=== PATIENT | male | born 1980 | race Two or more races ===

== ENCOUNTER 2017-12-06 21:00 | Emergency (ER) | payer OTHER ==
[2017-12-06 21:09] VITALS: BP 156/80; PULSE 97; TEMP 98.8; BMI 46.5
--- NOTE | 2017-12-06 21:32 | PDOC ---
History of Present Illness - General History Source: Patient Exam Limitations: No Limitations - History of Present Illness Initial Comments: The patient is a 36 year old male who presents to the emergency department s/p fall complaining of right toe pain beginning an hour ago. The patient reports slipping and falling on to his right toe. The patient reports the pain is moderate and localized in nature. The patient denies loss of consciousness. The patient denies any other kinds of injuries. The patient denies chest pain, shortness of breath, headache, and dizziness. Denies fevers, chills, nausea, vomiting, diarrhea, and constipation. Denies dysuria, frequency, urgency, and hematuria. PAST MEDICAL HISTORY: no significant history. PAST SURGICAL HISTORY: Left ankle surgery. FAMILY HISTORY: no pertinent history SOCIAL HISTORY: Pt lives with family and is employed. Social alcohol consumption. MEDICATIONS: reviewed ALLERGIES: As per nursing notes ROS: General: No fevers or chills, no weakness, no weight loss HEENT: No change in vision. No sore throat,. No ear pain CardioVascular: No chest pain or shortness of breath Respiratory:No cough, or wheezing. Gastrointestinal: no nausea, vomiting, diarrhea or constipation, No rectal bleeding Genitourinary: No dysuria, hematuria, or frequency Musculoskeletal: (+)Right toe pain. Neurologic: No headache, vertigo, dizziness or loss of consciousness Psychiatric: nor depression Skin: No rashes or easy bruising Endocrine: no increased thirst or abnormal weight change Allergic: no skin or latex allergy All other systems reviewed and normal PE: GENERAL: The patient is awake, alert, and fully oriented, in no acute distress. HEAD: Normal with no signs of trauma. EYES: Pupils equal, round and reactive to light, extraocular movements intact, sclera anicteric, conjunctiva clear. EXTREMITIES: (+)Mild swelling of distal phalanx of right toe. (+)Subungual hematoma less than 10% of toenail. (+)Tenderness to palpation of distal phalanx of right foot. NEUROLOGICAL: Normal speech, normal gait. PSYCH: Normal mood, normal affect. SKIN: Warm, Dry, normal turgor, no rashes or lesions noted. <Fiona Mathew - Last Filed: 12/06/17 21:43> - General History Source: Patient Exam Limitations: No Limitations - History of Present Illness Initial Comments: 12/06/17 21:51 A portion of this note was documented by scribe services under my direction. I have reviewed the details of the note, within reason, and agree with the documentation. The case summary and management plan written by me. X-ray right great toe fracture distal phalanx Assessment and plan: This is a 36-year-old male who comes in post injuring his toe. X-ray shows a fracture of the distal phalanx. Patient's toe was shaq taped he was given ibuprofen and told to follow-up with his doctor as needed <Zaira Weldon I - Last Filed: 12/06/17 21:53> - General Chief Complaint: Injury Stated Complaint: RT BIG TOE INJURY Time Seen by Provider: 12/06/17 21:30 Past History <Fiona Mathew - Last Filed: 12/06/17 21:43> - Past Medical History COPD: No Kidney Stones: Yes - Suicide/Smoking/Psychosocial Hx Smoking History: Never smoked Have you smoked in the past 12 months: No Information on smoking cessation initiated: No Hx Alcohol Use: (social) Drug/Substance Use Hx: No Substance Use Type: None <Zaira Weldon I - Last Filed: 12/06/17 21:53> - Past Medical History Allergies/Adverse Reactions: Allergies Allergy/AdvReac Type Severity Reaction Status Date / Time No Known Allergies Allergy Verified 12/06/17 21:04 Home Medications: Ambulatory Orders NK [No Known Home Medication] 12/06/17 *Physical Exam - Vital Signs Last Vital Signs Temp Pulse Resp BP Pulse Ox 98.8 F 97 H 18 156/80 98 12/06/17 21:00 12/06/17 21:00 12/06/17 21:00 12/06/17 21:00 12/06/17 21:00 <Fiona Mathew - Last Filed: 12/06/17 21:43> - Vital Signs Last Vital Signs Temp Pulse Resp BP Pulse Ox 98.8 F 97 H 18 156/80 98 12/06/17 21:00 12/06/17 21:00 12/06/17 21:00 12/06/17 21:00 12/06/17 21:00 <Zaira Weldon I - Last Filed: 12/06/17 21:53> *DC/Admit/Observation/Transfer - Attestations Scribe Attestion: Documentation prepared by Fiona Mathew, acting as medical device for Zaira Weldon MD. <Fiona Mathew - Last Filed: 12/06/17 21:43> - Discharge Dispostion Admit: No <Zaira Weldon I - Last Filed: 12/06/17 21:53> Diagnosis at time of Disposition: Fracture of right great toe Qualifiers: Encounter type: initial encounter Fracture type: closed Phalanx: distal Fracture alignment: nondisplaced Qualified Code(s): S92.424A - Nondisplaced fracture of distal phalanx of right great toe, initial encounter for closed fracture - Discharge Dispostion Disposition: HOME Condition at time of disposition: Stable - Patient Instructions Additional Instructions: You have a fracture of the end of your toe. Shaq tape it to the toe next to it for additional support, Wear an open type shoe or sandal. Tylenol or Motrin as needed for pain. Return to the emergency department immediately with ANY new, persistent or worsening symptoms. Continue any medications as previously prescribed by your physician. You should follow up with your primary doctor as soon as possible regarding today's emergency department visit. . Please make sure your doctor reviews the results of your emergency evaluation. Thank you for coming to the Emergency Department today for your care. It was a pleasure to see you today. Please note that your evaluation is INCOMPLETE until you follow-up with your doctor.
[2017-12-06] MEDS ORDERED: IBUPROFEN 400 MG TABLET (FP) PO ONE ×2 (21:34→22:02)
== END 2017-12-06 22:06 | disposition home or self-care (01) ==
LOC: FER 21:00
PROC: 2W3UXYZ Immobilization of Right Toe using Other Device (ICD-10-PCS; principal; 2017-12-06)
DX: S92.424A Nondisplaced fracture of distal phalanx of right great toe, initial encounter for closed fracture (principal); X58.XXXA Exposure to other specified factors, initial encounter; Y93.89 Activity, other specified; Y92.9 Unspecified place or not applicable
CPT/HCPCS: 73660-TC-FY; 99282-25

== ENCOUNTER 2018-12-17 08:29 | Emergency (ER) | payer OTHER ==
--- NOTE | 2018-12-17 08:39 | PDOC ---
History of Present Illness - General Chief Complaint: Urinary Problem Stated Complaint: BLOOD IN URINE Time Seen by Provider: 12/17/18 08:33 History Source: Patient Exam Limitations: No Limitations - History of Present Illness Initial Comments: 12/17/18 08:35 Mr. De La Garza is a 38 yo M who presents to the ER with a complaint of hematuria which began 1 hour ago. Patient's first urine this morning was normal. After that he noted cranberry colored urine No associated dysuria, frequency, urgency Pt reported lower back pain yesterday, on right side, 7/10, sharp, constant, resolved by the time he went to sleep last night No traumatic injury No recent recent hard/excessive workouts No new medication No fevers or chills PMH: HTN, GERD, Fatty liver, Kidney stone PSH: right ankle surgery Meds: Amlodipine, Metoprolol ALL: NKDA Social: denies smoking, drugs, alcohol on weekends Works for [employer] (does heavy lifting) ROS: GENERAL/CONSTITUTIONAL: No: fever, chills, weakness, loss of appetite. HEAD, EYES, EARS, NOSE AND THROAT: No: change in vision, ear pain, discharge, sore throat, throat swelling. CARDIOVASCULAR: No: chest pain, lightheadedness, palpitations, syncope RESPIRATORY: No: cough, shortness of breath, wheezing, hemoptysis, stridor. GASTROINTESTINAL: No: nausea, vomiting, diarrhea, abdominal cramping, rectal bleeding, constipation. GENITOURINARY: Yes: hematuria No: dysuria, frequency, urgency, flank pain. MUSCULOSKELETAL: No: back pain, neck pain, joint pain, muscle swelling or pain SKIN: No: lesions, pallor, rash or easy bruising. NEUROLOGIC: No: headache, vertigo, paresthesias, weakness PE: GENERAL: The patient is in no acute distress. HEAD: Normal with no signs of trauma. EYES: PERRLA, EOMI, sclera anicteric, conjunctiva clear. ENT: Ears normal, nares patent, oropharynx clear without exudates. Moist mucous membranes. NECK: Normal range of motion, supple LUNGS: Breath sounds equal, clear to auscultation bilaterally. No wheezes, and no crackles. HEART:Regular rate and rhythm, normal S1 and S2 without murmur, rub or gallop. ABDOMEN: Soft, nontender, normoactive bowel sounds. No guarding, no rebound. EXTREMITIES: Normal range of motion, no edema. NEUROLOGICAL: Cranial nerves II through XII grossly intact. Normal speech. No focal neurological deficits. MUSCULOSKELETAL: No CVA tenderness SKIN: Warm, Dry, normal turgor, no rashes or lesions noted. 12/17/18 08:44 12/17/18 09:09 12/17/18 09:18 Past History - Past Medical History Allergies/Adverse Reactions: Allergies Allergy/AdvReac Type Severity Reaction Status Date / Time No Known Allergies Allergy Verified 12/17/18 08:35 Home Medications: Ambulatory Orders Amlodipine Besylate [Norvasc -] 10 mg PO DAILY 12/17/18 Ciprofloxacin [Cipro -] 500 mg PO Q12H #10 tablet 12/17/18 Metoprolol Succinate 25 mg PO DAILY 12/17/18 Naproxen Sodium 220 mg PO BID PRN #30 tablet 12/17/18 Oxycodone HCl/Acetaminophen [Percocet 5-325 mg Tablet -] 1 tab PO Q8H PRN #12 tablet MDD 3 12/17/18 Tamsulosin HCl [Flomax] 0.4 mg PO HS #10 capsule 12/17/18 COPD: No Kidney Stones: Yes - Suicide/Smoking/Psychosocial Hx Smoking History: Never smoked Have you smoked in the past 12 months: No Hx Alcohol Use: (social) Drug/Substance Use Hx: No Substance Use Type: None ED Treatment Course - LABORATORY CBC & Chemistry Diagram: 12/17/18 08:54 12/17/18 08:54 Medical Decision Making - Medical Decision Making 12/17/18 09:09 Laboratory Tests 12/17/18 08:54 WBC 7.9 Hgb 15.3 Hct 46.1 Plt Count 221 No anemia 12/17/18 09:20 Laboratory Tests 12/17/18 08:39 Urine Color Red Urine Appearance Cloudy Urine Blood 3+ H Urine Nitrite Negative Ur Leukocyte Esterase Negative 12/17/18 09:46 CT demonstrates partially obstructing right proximal ureteral stone, mild hydro Case reviewed with Dr Krishna Loyola He would like to discharge this patient on pain meds, abx, flomax Will see him in the office on Thursday Pt to return to the ER immediately for PAIN that is not controlled with pain meds, FEVERS, WEAKNESS, Any other concerns or complaints *DC/Admit/Observation/Transfer Diagnosis at time of Disposition: Kidney stone on right side - Discharge Dispostion Disposition: HOME Condition at time of disposition: Stable Decision to Admit order: No - Referrals Referrals: Almas Rubio MD [Staff Physician] - Paulette Anderson MD [Staff Physician] - - Patient Instructions Printed Discharge Instructions: DI for Kidney Stones, Extracorporeal Shock Wave Lithotripsy, Kidney Stones (Alternative Therapy) Additional Instructions: Mr De La Garza Thank you for coming in to the ER today You have a very large kidney stone on the right side You may pass it but you may not you will need to follow up with the Urologist for further management I have prescribed pain medication (naproxen should be taken with food or milk, it could irritate your stomach/gastritis), Percocet is for severe break through pain ONLY as prescribed, do not take it if you do not need it as this medications is addicting You should also take antibiotics If you notice fevers, chills, weakness, severe pain not relieved with pain medications, or any other concern please feel free to return to the ER for repeat assessment Please call the Urologist (Dr. Rubio) today for an appointment on Thursday (he would like to see you then) I have also included Dr Anderson's information in case you can't see Dr Rubio - Post Discharge Activity Forms/Work/School Notes: Back to Work
[2018-12-17 08:43] VITALS: BP 156/98; PULSE 78; TEMP 98.8; BMI 43.2
[2018-12-17 09:01] LABS: BASO % 1.1 % (0-2.0); EOS % 5.7 % (0-4.5); HEMATOCRIT 46.1 % (35.4-49); HEMOGLOBIN 15.3 GM/dl (11.7-16.9); MCH 29.2 pg (25.7-33.7); MCHC 33.2 g/dl (32.0-35.9); MEAN CELL VOLUME 87.8 fl (80-96); MEAN PLT VOLUME 9.2 fl (7.5-11.1); MONO % 5.9 % (3.8-10.2); NEUT % 55.3 % (42.8-82.8); PLATELET COUNT 221 K/MM3 (134-434); RBC 5.25 M/mm3 (4.00-5.60); RDW 13.4 % (11.9-15.9); WHITE BLOOD COUNT 7.9 K/mm3 (4.0-10.8)
[2018-12-17 09:10] LABS: ALBUMIN 4.5 g/dl (3.4-5.0); ALK PHOS 73 U/L (45-117); AMYLASE 51 U/L (25-115); ANION GAP 9 MMOL/L (8-16); BILIRUBIN,TOTAL 0.9 mg/dl (0.2-1); BLOOD UREA NITROGEN 22 mg/dl (7-18); CALCIUM 9.5 mg/dl (8.5-10); CHLORIDE 104 mmol/L (98-107); CO2 24 mmol/L (21-32); CREATININE 0.8 mg/dl (0.55-1.3); GLUCOSE,RANDOM 129 mg/dl (74-106); POTASSIUM 3.8 mmol/L (3.5-5.1); SGOT/AST 51 U/L (15-37); SGPT/ALT 91 U/L (13-61); SODIUM 137 mmol/L (136-145); TOT PROT 7.6 g/dl (6.4-8.2)
[2018-12-17 10:36] LABS: LIPASE 129 U/L (73-393)
== END 2018-12-17 10:04 | disposition home or self-care (01) ==
LOC: FER 08:29
DX: N23 Unspecified renal colic (principal)
CPT/HCPCS: 36415; 74176-TC; 80053; 81003; 81015; 82150; 83690; 85025; 87086; 99282-25

== ENCOUNTER 2018-12-27 08:24 | Day surgery (SDC) | payer OTHER ==
[2018-12-24 14:13] VITALS: BMI 41.5
[2018-12-27] MEDS ORDERED: PROPOFOL 20 ML ONE ×2 (11:43)
[2018-12-27] MEDS ORDERED: LIDOCAINE HCL/PF 2% SDV 5ML VIAL ONE (11:49)
[2018-12-27] MEDS ORDERED: GLYCOPYRROLATE 0.2 MG/1 ML VIAL ONE (12:01)
[2018-12-27] MEDS ORDERED: DEXAMETHASONE SOD PHOSPHATE 4 MG/1 ML VIAL ONE (12:01)
[2018-12-27] MEDS ORDERED: oxyCODONE HCL 5 MG TABLET PO PRN (12:25)
[2018-12-27] MEDS ORDERED: IBUPROFEN 800 MG/8 ML IJ IVPB PRN (12:25)
[2018-12-27] MEDS ORDERED: ONDANSETRON 4 MG/2 ML VIAL IVPUSH PRN (12:25)
[2018-12-27] MEDS ORDERED: LACTATED RINGERS SOLUTION 1,000 ML IV SCH (12:30)
--- NOTE | 2018-12-27 13:25 | OP ---
Operative Note - Note: Operative Date: 12/27/18 Pre-Operative Diagnosis: right ureteral stone Operation: cystoscopy/right retrograde pyelogram/right ureteroscopic laser lithotripsy/attempted right ureteral stone basketing/right ureteral stent placement Findings: 10 mm proximal partially obstructing ureteral stone Post-Operative Diagnosis: Same as Pre-op Surgeon: Almas Rubio Anesthesia: General Drains & Tubes with Location: 02/14 right ureteral stent
[2018-12-27 13:40] VITALS: TEMP 98.1
[2018-12-27] MEDS ORDERED: ONDANSETRON 4 MG/2 ML VIAL ONE (13:42)
[2018-12-27] MEDS ORDERED: ACETAMINOPHEN 325 MG TABLET (FP) ONE (14:29)
[2018-12-27] MEDS ORDERED: ACETAMINOPHEN 325 MG TABLET (FP) PO ONE (14:31)
[2018-12-27 16:26] VITALS: BP 127/77; PULSE 61
--- NOTE | 2018-12-28 10:14 | OP ---
DATE OF OPERATION: 12/27/2018 PREOPERATIVE DIAGNOSIS: Right ureteral stone. POSTOPERATIVE DIAGNOSIS: Right ureteral stone. PROCEDURE: Cystoscopy, right retrograde pyelogram, right ureteroscopic laser lithotripsy, attempted right ureteral stone basketing, and right ureteral stent placement. ATTENDING: Nadine Cade MD ANESTHESIA: General. OPERATION WENT FOLLOWS: The patient was brought in the operating room, placed in supine position on the operating room table. General anesthesia and preoperative antibiotics were administered. At this point, the patient was placed in the dorsal lithotomy position and prepped and draped in the usual sterile manner. Cystoscopy was performed. No evidence of stones or neoplasm was noted within the bladder. A retrograde pyelogram was performed which showed a filling defect consistent with a 1-cm ureteral stone was found. The stone was partially obstructing and located in the upper third of the ureter. A wire was passed proximally. At this point, ureteroscopy was performed. The stone was seen. Under direct visualization, laser lithotripsy was performed. The stone migrated more proximally at this point. Attempts at basketing stone were unsuccessful as the particles migrated proximally into the kidney. It was decided to leave the patient with a stent and to evaluate the patient at a later date for extracorporeal shock wave lithotripsy for the residual stone. A 6-Cypriot 24-cm right ureteral stent was then placed over the wire utilizing the Seldinger technique. No complications were noted. The disposition of the patient was to the recovery room. NADINE CADE M.D. [id number]
== END 2018-12-27 16:45 | disposition home or self-care (01) ==
LOC: JASU-SURG 08:24
PROVIDERS: ATTEND Urology
PROC: 0TF68ZZ Fragmentation in Right Ureter, Via Natural or Artificial Opening Endoscopic (ICD-10-PCS; principal; 2018-12-27 10:00)
PROC: 0T768DZ Dilation of Right Ureter with Intraluminal Device, Via Natural or Artificial Opening Endoscopic (ICD-10-PCS; 2018-12-27 10:00)
DX: N20.1 Calculus of ureter (principal)
CPT/HCPCS: 76000-TC-FY; 94760

== ENCOUNTER 2019-01-03 15:55 | Emergency (ER) | payer OTHER ==
[2019-01-03 16:07] VITALS: BP 143/93; PULSE 73; TEMP 98.4; BMI 40.3
[2019-01-03] MEDS ORDERED: KETOROLAC TROMETHAMINE 30 MG/1 ML VIAL IVPUSH ONE (16:56)
[2019-01-03] MEDS ORDERED: FAMOTIDINE 20 MG/50 ML IVPB 20 MG/50 ML MG IVPB ONE ×2 (16:56→17:37)
[2019-01-03] MEDS ORDERED: MAG HYDROX/AL HYDROX/SIMETH 30 ML UNIT-DOSE CUP PO ONE (16:57)
--- NOTE | 2019-01-03 16:59 | PDOC ---
Documentation entered by Alex Marrero SCRIBE, acting as scribe for Leyla Altamirano MD. Leyla Altamirano MD: This documentation has been prepared by the Janes colbert Daniel, SCRIBE, under my direction and personally reviewed by me in its entirety. I confirm that the documentation accurately reflects all work, treatment, procedures, and medical decision making performed by me. History of Present Illness - General Chief Complaint: Constipation Stated Complaint: constipation History Source: Patient Exam Limitations: No Limitations - History of Present Illness Initial Comments: 01/03/19 16:50 The patient is a 38 year old male with a past medical history of kidney stones and HTN here today for evaluation of constipation and abdominal pain. The patient reports that his constipation began after he had ureteral stents put in on 12/27/18 (Surgery performed by Dr. Rubio). He reports taking flomax for 2 days. he had procedure done under general anesthesia as well as short course of oxycodone post operatively which he took 1.5 tab of for some pain. Patient reports that he has been having bowel movements but they have been less than usual. He tried prune juice with no relief and notes mild nausea. He also reports right lower back pain near the incision site and mild blood with urination. Patient also notes 1 week of mild abdominal pain. he has upcoming lithotripsy coming up with Dr Harry for his ureteral stone. making small brown stool, nonbloody, no rectal pain or bleeding. +flatus. last BM today. Patient denies headache, lightheadedness. Denies fever, chills. Denies chest pain, shortness of breath. Denies nausea, vomiting, diarrhea. Allergies: NKA Social history: Denies illicit drug and tobacco use. Confirms social drinking. 01/03/19 18:45 Past History - Past Medical History Allergies/Adverse Reactions: Allergies Allergy/AdvReac Type Severity Reaction Status Date / Time No Known Allergies Allergy Verified 01/03/19 15:56 Home Medications: Ambulatory Orders Amlodipine Besylate [Norvasc -] 10 mg PO DAILY 12/17/18 Metoprolol Succinate 25 mg PO DAILY 12/17/18 Tamsulosin HCl [Flomax] 0.4 mg PO HS #10 capsule 12/17/18 Docusate Sodium [Colace -] 100 mg PO BID #14 capsule 01/03/19 Sennosides [Senna -] 1 tab PO BID #20 tablet 01/03/19 COPD: No HTN: Yes Kidney Stones: Yes - Surgical History Orthopedic Surgery: Yes (ANKLE SX) - Suicide/Smoking/Psychosocial Hx Smoking History: Former smoker Have you smoked in the past 12 months: No If you are a former smoker, when did you quit?: 10-15 YEARS AGO Hx Alcohol Use: Yes (social) Drug/Substance Use Hx: No Substance Use Type: None Review of Systems - Review of Systems Able to Perform ROS?: Yes Comments:: 01/03/19 16:50 GENERAL/CONSTITUTIONAL: No fever or chills. No weakness. no sweats. HEAD, EYES, EARS, NOSE AND THROAT: No change in vision or hearing. No ear pain or discharge. No sore throat or mouth pain. No difficulty swallowing. No congestion. CARDIOVASCULAR: No chest pain or palpitations, syncope or edema. RESPIRATORY: No SOB, cough, wheezing, or hemoptysis. GASTROINTESTINAL +nausea. +constipation. +abdominal pain. No vomiting. No diarrhea. No bloody stools. GENITOURINARY: No hematuria, dysuria, frequency, urgency or other changes. MUSCULOSKELETAL: +right lower back pain. No joint or muscle swelling or pain. No decreased range of motion. No neck pain. SKIN: No rash or changes in skin color or lesions. No wounds. NEUROLOGIC: alert and oriented appropriately No headache, dizziness, loss of consciousness, or change in strength/sensation. No gait instability. HEMATOLOGIC/LYMPHATIC: No anemia, easy bruising/bleeding, or history of blood clots. No swollen lymph nodes ALLERGIC/IMMUNOLOGIC: No allergies PSYCH: no anxiety/depression All other systems reviewed and negative, or as documented in HPI. *Physical Exam - Vital Signs Last Vital Signs Temp Pulse Resp BP Pulse Ox 98.4 F 73 20 143/93 98 01/03/19 15:55 01/03/19 15:55 01/03/19 15:55 01/03/19 15:55 01/03/19 15:55 - Physical Exam Comments: 01/03/19 17:01 General: Well appearing, awake and alert, NAD. HEENT: NCAT, PERRL, EOMI, clear conjunctiva, anicteric, moist mucus membranes, clear oropharynx, no oral lesions.. Neck: neck supple, FROM Resp: CTAB, normal and even respirations, no respiratory distress CVS: RRR, no murmurs, 2+ peripheral pulses throughout, no peripheral edema Abdomen: +mild epigastric tenderness. soft, ND, no rebound or guarding. No CVAT. Back: nontender, normal inspection and ROM MSK: no edema, GUTIERREZ x4, ROM intact. No clubbing or cyanosis. normal bulk and tone. Extremities: no calf tenderness Rectal exam: no stool in vault. Good muscle tone. No hemorrhoids or bleeding. Neuro: alert, oriented appropriately; no focal neurologic deficits Skin: warm and well perfused, cap refill <2 sec, normal color ED Treatment Course - LABORATORY CBC & Chemistry Diagram: 01/03/19 17:33 01/03/19 17:33 - RADIOLOGY Radiology Studies Ordered: Category Date Time Status ABDOMEN-KUB FLAT PLATE [RAD] Stat Radiology 01/03/19 16:58 Ordered Medical Decision Making - Medical Decision Making 01/03/19 16:58 hpi as documented VS reviewed, wnl DDx abdominal pain: Renal colic, biliary colic, metabolic/electrolyte derangements. GERD, PUD, esophageal spasm, pancreatitis, hepatitis, constipation , colitis, gastroenteritis, cholecystitis, UTI, pyelonephritis, ileus, SBO, medication side effect, hernia, appendicitis, diverticulitis, mesenteric ischemia. msk strain ED course: - abdomen exam with mild epigastric TTP, no peritoneal sx. rectal exam unremarkable, no hemorrhoid or fecal impaction. - labs and lytes, lipase normal. UA unremarkable, no blood or signs of infection - GI cocktail, reassess - feels better - Axr with right ureteral stent in place, nonobstructive bowel gas pattern, no perf, scant stool in colon. - min abdominal sx, well appearing, nonperitoneal. low suspicion for abdominal pathology or infection, no imaging indicated at this time. - constipation likely from prior anesthesia and small opioid use (oxycodone, only took 1 day - opioid naive) constipation care instructions. stool softener, high fiber diet and laxative/ miralax as needed for clean out. he is also likely passing his stone with ureteral stent in place, voiding urine. has upcoming uro appt for lithotripsy 01/03/19 18:34 01/03/19 18:36 01/03/19 18:47 *DC/Admit/Observation/Transfer Diagnosis at time of Disposition: Abdominal pain - Discharge Dispostion Disposition: HOME Condition at time of disposition: Good Decision to Admit order: No - Prescriptions Prescriptions: Docusate Sodium [Colace -] 100 mg PO BID #14 capsule Sennosides [Senna -] 1 tab PO BID #20 tablet - Referrals Referrals: Almas Rubio MD [Staff Physician] - [facility] [Provider Group] [facility] [Provider Group] - Patient Instructions Printed Discharge Instructions: DI for Abdominal Pain-Adult, DI for Constipation Additional Instructions: - You were seen in the emergency department for constipation. Return if worsening symptoms. - You have been prescribed docusate (colace) and senna. These should be taken every day. If you do not have regular bowel movements after 2-3 days, you may add Miralax or Metamucil daily. These can be bought at any pharmacy and are available over the counter. - High fiber diet encouraged: beans, fruits, vegetables, whole grains. - Make sure you are drinking plenty of water, at least 6-8 cups per day ideally. - You should follow up with your primary doctor within the next 2-3 days for evaluation and to help you adjust medications for your constipation. - your blood work was normal, X ray did not show blockage or obstruction. ureteral stent on left in place. you have blood in urine consistent with passing kidney stone that will be managed by Dr Harry Discharge: Take Colace 100-200 mg up to three times per day. You may take along with Senokot 1-2 tabs, ingest with full glass of water. Maintain fluid intake 6- 8 glasses per day. Please increase fibers in your diet. You may also take Milk of Magnesia 30 mL as needed for constipation, you may repeat in 2 hours again if no bowel movement. - Post Discharge Activity
[2019-01-03] MEDS ORDERED: MAG HYDROX/AL HYDROX/SIMETH 30 ML UNIT-DOSE CUP ONE (17:38)
[2019-01-03] MEDS ORDERED: KETOROLAC TROMETHAMINE 15 MG/ML VIAL ONE (17:38)
[2019-01-03 17:50] LABS: BASO % 1.1 % (0-2.0); EOS % 3.8 % (0-4.5); HEMOGLOBIN 15.2 GM/dl (11.7-16.9); LYMPH % 28.2 % (8-40); MCH 28.8 pg (25.7-33.7); MCHC 33.1 g/dl (32.0-35.9); MEAN CELL VOLUME 87.2 fl (80-96); MEAN PLT VOLUME 8.4 fl (7.5-11.1); MONO % 6.8 % (3.8-10.2); NEUT % 60.1 % (42.8-82.8); PLATELET COUNT 273 K/MM3 (134-434); RBC 5.28 M/mm3 (4.00-5.60); RDW 12.8 % (11.9-15.9)
[2019-01-03 17:54] LABS: ALBUMIN 4.6 g/dl (3.4-5.0); BILIRUBIN,TOTAL 0.7 mg/dl (0.2-1); TOT PROT 7.7 g/dl (6.4-8.2)
[2019-01-03 18:13] LABS: CALCIUM 9.6 mg/dl (8.5-10)
== END 2019-01-03 19:23 | disposition home or self-care (01) ==
LOC: FER 15:55
PROC: 3E033GC Introduction of Other Therapeutic Substance into Peripheral Vein, Percutaneous Approach (ICD-10-PCS; principal; 2019-01-03)
PROC: 3E0333Z Introduction of Anti-inflammatory into Peripheral Vein, Percutaneous Approach (ICD-10-PCS; 2019-01-03)
DX: R10.9 Unspecified abdominal pain (principal); Z87.891 Personal history of nicotine dependence; I10 Essential (primary) hypertension; Z87.442 Personal history of urinary calculi
CPT/HCPCS: 36415; 74018-TC-FY; 80053; 81003; 81015; 83690; 85025; 87086; 99282-25

== ENCOUNTER 2019-01-10 12:08 | Day surgery (SDC) | payer OTHER ==
[2019-01-07 14:21] VITALS: BMI 40.3
[2019-01-10] MEDS ORDERED: MIDAZOLAM HCL 2 MG/2 ML SINGLE DOSE VIAL ONE ×2 (13:36)
--- NOTE | 2019-01-10 14:09 | OP ---
Operative Note - Note: Operative Date: 01/10/19 Pre-Operative Diagnosis: Right renal stone Operation: Right ESWL Findings: 7 mm lower lobe Right renal stone Surgeon: Almas Rubio Anesthesia: Fractional Estimated Blood Loss (mls): 0 Operative Report Dictated: Yes
[2019-01-10] MEDS ORDERED: KETOROLAC TROMETHAMINE 30 MG/1 ML VIAL ONE (14:11)
[2019-01-10 15:47] VITALS: BP 118/76; PULSE 56; TEMP 98
--- NOTE | 2019-01-11 15:11 | OP ---
DATE OF OPERATION: 01/10/2019 PREOPERATIVE DIAGNOSIS: Right renal stone. POSTOPERATIVE DIAGNOSIS: Right renal stone. PROCEDURE: Right extracorporeal shock-wave lithotripsy. ATTENDING: Nadine Cade MD ANESTHESIA: Fractional OPERATION: The patient was brought in the operating room, placed in supine position on the operating room table. Ultrasonography and fluoroscopy were performed. A 7-mm right lower pole stone was identified. Anesthesia and preoperative antibiotics were then administered. Shock-wave lithotripsy was then started, 2500 impulses at 18 joules of power were administered to the stone. Fragmentation of the stone was noted under realtime ultrasonography and fluoroscopy. No complications were noted. Disposition of the patient was to recovery room. NADINE CADE M.D. [id number]
== END 2019-01-10 16:09 | disposition home or self-care (01) ==
LOC: JASU-SURG 12:08
PROVIDERS: ATTEND Urology
PROC: 0TF3XZZ Fragmentation in Right Kidney Pelvis, External Approach (ICD-10-PCS; principal; 2019-01-10 13:15)
DX: N20.0 Calculus of kidney (principal)

== ENCOUNTER 2019-05-05 16:13 | Emergency (ER) | payer OTHER ==
[2019-05-05 16:43] VITALS: BP 143/71; PULSE 88; TEMP 98.5; BMI 41.9
--- NOTE | 2019-05-05 16:48 | PDOC ---
Documentation entered by Danielle Morrell SCRIBE, acting as scribe for Parvin Dean MD. Parvin Dean MD: This documentation has been prepared by the Petros colbert Brenda, SCRIBE, under my direction and personally reviewed by me in its entirety. I confirm that the documentation accurately reflects all work, treatment, procedures, and medical decision making performed by me. History of Present Illness - General Chief Complaint: Blood Pressure Problem Stated Complaint: HIGH BLOOD PRESSURE Time Seen by Provider: 05/05/19 16:15 History Source: Patient Exam Limitations: No Limitations - History of Present Illness Initial Comments: 05/05/19 16:37 The patient is a 38 year old male, with a significant PMH of kidney stones and HTN who presents to the emergency department with complaints of high blood pressure at 177/111, while checking it at home. As per patient, he was changed to Lisinopril from Amlodipine and metoprolol on Thursday (05/04/19) by his wellness rn, and has since been advised to check his blood pressure twice a day by his primary care doctor. The patient reported his elevated BP reading to his cousin who told him to go to the ED right away. He denies any headache, dizziness, focal weakness/numbness, CP, SOB, visual sxs. He reports feeling recent cold symptoms, such as sneezing, coughing and a sore throat since Thursday , stating his co-worker likely got him sick. He has been taking coricidine HBP since yesterday for his cold sxs. Denies fever, chills, nausea, vomiting, diarrhea and constipation. Denies any urinary symptoms. Allergies: NKA Past surgical history: lithotripsy, orthopedic ankle surgery Social history: Denies illicit drug use. Confirms social drinking. Former smoker, quit 10-15 years ago. PCP: Dr. Patiño, at [facility] in the [place]. Past History - Past Medical History Allergies/Adverse Reactions: Allergies Allergy/AdvReac Type Severity Reaction Status Date / Time No Known Allergies Allergy Verified 05/05/19 16:16 Home Medications: Ambulatory Orders Metoprolol Succinate 25 mg PO DAILY 12/17/18 Lisinopril/Hydrochlorothiazide [Lisinopril-Hctz 20-12.5 mg Tab] 1 each PO DAILY 05/05/19 COPD: No Disorders: Yes HTN: Yes Kidney Stones: Yes - Surgical History Orthopedic Surgery: Yes (ANKLE SX) - Suicide/Smoking/Psychosocial Hx Smoking History: Former smoker Have you smoked in the past 12 months: No If you are a former smoker, when did you quit?: 10-15 YEARS AGO Hx Alcohol Use: Yes (social) Drug/Substance Use Hx: No Substance Use Type: None Review of Systems - Review of Systems Comments:: 05/05/19 16:43 GENERAL/CONSTITUTIONAL: No fever or chills. No weakness. HEAD, EYES, EARS, NOSE AND THROAT: No change in vision. No ear pain or discharge. +sore throat. GASTROINTESTINAL: No nausea, vomiting, diarrhea or constipation. GENITOURINARY: No dysuria, frequency, or change in urination. CARDIOVASCULAR: No chest pain or shortness of breath. RESPIRATORY: +cough, wheezing, or hemoptysis. MUSCULOSKELETAL: No joint or muscle swelling or pain. No neck or back pain. SKIN: No rash NEUROLOGIC: No headache, vertigo, loss of consciousness, or change in strength/ sensation. ENDOCRINE: No increased thirst. No abnormal weight change. HEMATOLOGIC/LYMPHATIC: No anemia, easy bleeding, or history of blood clots. ALLERGIC/IMMUNOLOGIC: No hives or skin allergy. *Physical Exam - Vital Signs Last Vital Signs Temp Pulse Resp BP Pulse Ox 98.5 F 88 16 143/71 96 05/05/19 16:13 05/05/19 16:13 05/05/19 16:13 05/05/19 16:13 05/05/19 16:13 - Physical Exam Comments: 05/05/19 16:45 GENERAL: Awake, alert, and fully oriented, in no acute distress HEAD: No signs of trauma EYES: PERRLA, EOMI, sclera anicteric, conjunctiva clear ENT: Auricles normal inspection, hearing grossly normal, +clear rhinorrhea, oropharynx clear without exudates. Moist mucosa NECK: Normal ROM, supple, no lymphadenopathy, JVD, or masses LUNGS: Breath sounds equal, clear to auscultation bilaterally. No wheezes, and no crackles HEART: Regular rate and rhythm, normal S1 and S2, no murmurs, rubs or gallops ABDOMEN: Soft, nontender, normoactive bowel sounds. No guarding, no rebound. No masses EXTREMITIES: Normal range of motion, no edema. No clubbing or cyanosis. No cords, erythema, or tenderness NEUROLOGICAL: Normal speech, cranial nerves intact, negative pronator drift, 5/ 5 strength in all 4 extremities, normal sensation to light touch in all 4 extremities, normal cerebellar exam, normal gait, normal tone SKIN: Warm, Dry, normal turgor, no rashes or lesions noted. Medical Decision Making - Medical Decision Making 05/05/19 16:46 38yo M hx HTN, recent BP medication change yesterday presents to the ED with asymptomatic HTN He has URI sxs, but denies any headache, cp, sob, dizziness, focal weakness/ numbness, or visual sxs His exam is wnl In the ED, his BP is 143/71 Likely hypertensive urgency, no symptoms concerning for hypertensive emergency Given minimal risk for hypertensive emergency, will hold off on labs, UA, CTH, or EKG and plan to call his PMD Dr. Patiño in the [place] for close f/u. Anticipate DC. Called Dr. Patiño (PCP) at [phone] at 16:35 (Hold for 20 minutes)- no answer. Called Dr. Patiño (PCP) again at 17:00 (Hold for 30 minutes) - no answer. 05/05/19 17:33 Attempted to speak with PMD about pt's presentation in ED Scribe on hold for very long period of time No urgent need to discuss case At this time, pt remains asymptomatic and agrees to f/u closely He is clinically stable for DC home, will f/u with PMD in 1-2 days I discussed the physical exam findings, ancillary test results and final diagnoses with the patient. I answered all of the patient's questions. The patient was satisfied with the care received and felt comfortable with the discharge plan and treatment plan. The patient will call their primary care physician within 24 hours to arrange follow-up and will return to the Emergency Department with any new, persistent or worsening symptoms. *DC/Admit/Observation/Transfer Diagnosis at time of Disposition: Elevated blood pressure reading, Rhinorrhea, Cough - Discharge Dispostion Disposition: HOME Condition at time of disposition: Improved Decision to Admit order: No - Referrals - Patient Instructions Printed Discharge Instructions: DI for High Blood Pressure Additional Instructions: Follow up with your primary doctor within 1-2 days Continue to take all of your medications as prescribed Return to the emergency department if you have any new, worsening, or concerning symptoms - Post Discharge Activity - Attestations Physician Attestion: 05/05/19 17:37 I, Dr. Parvin Dean MD, attest that this document has been prepared under my direction and personally reviewed by me in its entirety. I further attest, that it accurately reflects all work, treatment, procedures and medical decision -making performed by me.
== END 2019-05-05 17:45 | disposition home or self-care (01) ==
LOC: FER 16:13
DX: I10 Essential (primary) hypertension (principal); R05 Cough; J34.89 Other specified disorders of nose and nasal sinuses; N20.0 Calculus of kidney
CPT/HCPCS: 99282-25

== ENCOUNTER 2020-04-10 21:27 | Emergency (ER) | payer OTHER ==
[2020-04-10 21:32] VITALS: BP 145/90; PULSE 82; TEMP 98.9; BMI 40.7
--- NOTE | 2020-04-10 21:45 | PDOC ---
Documentation entered by Airam Wong SCRIBE, acting as scribe for Zaira Weldon MD. Zaira Weldon MD: This documentation has been prepared by the Judith colbert Xhesika, SCRIBE, under my direction and personally reviewed by me in its entirety. I confirm that the documentation accurately reflects all work, treatment, procedures, and medical decision making performed by me. History of Present Illness - General Chief Complaint: Pain, Acute Stated Complaint: RIGHT ARM INJURY Time Seen by Provider: 04/10/20 21:29 History Source: Patient Exam Limitations: No Limitations - History of Present Illness Initial Comments: 04/10/20 21:34 HPI The patient is a 39 year old male, with no significant PMH of who presents to the emergency department with R forearm swelling and pain. Pt states he was at work, was lifting something and heard a snap. Pt states immediately after he noticed the swelling. Pt states pain is worse with the use of the R forearm muscle. PAST MEDICAL HISTORY: no significant history PAST SURGICAL HISTORY: no significant history FAMILY HISTORY: no pertinent history SOCIAL HISTORY: Pt lives with family and is employed. MEDICATIONS: reviewed ALLERGIES: As per nursing notes Adult ROS General: No fevers or chills, no weakness, no weight loss HEENT: No change in vision. No sore throat,. No ear pain CardioVascular: No chest pain or shortness of breath Respiratory:No cough, or wheezing. Gastrointestinal: no nausea, vomiting, diarrhea or constipation, No rectal bleeding Genitourinary: No dysuria, hematuria, or frequency Musculoskeletal: +R forearm swelling and pain Neurologic: No headache, vertigo, dizziness or loss of consciousness Psychiatric: nor depression Skin: No rashes or easy bruising Endocrine: no increased thirst or abnormal weight change Allergic: no skin or latex allergy All other systems reviewed and normal PE GENERAL: The patient is awake, alert, and fully oriented, in no acute distress. HEAD: Normal with no signs of trauma. EYES: Pupils equal, round and reactive to light, extraocular movements intact, sclera anicteric, conjunctiva clear. EXTREMITIES: + Tenderness and swelling to R brachioradialis muscle. +pain with use of muscle. No obvious deformity. Neurovascular intact. . NEUROLOGICAL: Normal speech, normal gait. PSYCH: Normal mood, normal affect. SKIN: Warm, Dry, normal turgor, no rashes or lesions noted. 04/10/20 21:50 Assessment and plan: This is a 39-year-old male who comes in complaining of right forearm pain in the area of the brachial radialis muscle. There is some bunching of the muscle so most likely tore the tendon associated with it. Patient put in a sling and told to follow-up with an orthopedist. Patient given orthopedic follow-up. Past History - Medical History Allergies/Adverse Reactions: Allergies Allergy/AdvReac Type Severity Reaction Status Date / Time No Known Allergies Allergy Verified 05/05/19 16:16 Home Medications: Ambulatory Orders Metoprolol Succinate 25 mg PO DAILY 12/17/18 Lisinopril/Hydrochlorothiazide [Lisinopril-Hctz 20-12.5 mg Tab] 1 each PO DAILY 05/05/19 COPD: No Disorders: Yes HTN: Yes Kidney Stones: Yes - Surgical History Orthopedic Surgery: Yes (ANKLE SX) - Psycho-Social/Smoking History Smoking History: Never smoked Have you smoked in the past 12 months: No If you are a former smoker, when did you quit?: 10-15 YEARS AGO Information on smoking cessation initiated: No - Substance Abuse Hx (Audit-C & DAST Scrn) How often the patient has a drink containing alcohol: Never Score: In Men: 4 or > Positive; In Women: 3 or > Positive: 0 Screen Result (Pos requires Nsg. Audit-10AR): Negative In the last yr the pt used illegal drug/Rx for NonMed reason: No Score: Yes response is considered Positive: 0 Screen Result (Positive result requires Nsg. DAST-10): Negative *Physical Exam - Vital Signs Last Vital Signs Temp Pulse Resp BP Pulse Ox 98.9 F 82 20 145/90 98 04/10/20 21:29 04/10/20 21:29 04/10/20 21:29 04/10/20 21:29 04/10/20 21:29 Discharge - Discharge Information Problems reviewed: Yes Clinical Impression/Diagnosis: Right forearm injury Qualifiers: Encounter type: initial encounter Qualified Code(s): S59.911A - Unspecified injury of right forearm, initial encounter Condition: Stable Disposition: HOME - Admission No - Follow up/Referral Referrals: Elvis Dolan DO [Staff Physician] - - Patient Discharge Instructions Patient Printed Discharge Instructions: How to Use a Sling Additional Instructions: Wear the sling while awake you do not need to wear the sling in bed. Tylenol or Motrin for pain. No lifting with your right arm until you are seen by the orthopedist. Return to the emergency department immediately with ANY new, persistent or worsening symptoms. Continue any medications as previously prescribed by your physician. You should follow up with your primary doctor as soon as possible regarding today's emergency department visit. . Please make sure your doctor reviews the results of your emergency evaluation. Thank you for coming to the Emergency Department today for your care. It was a pleasure to see you today. Please note that your evaluation is INCOMPLETE until you follow-up with your doctor. - Post Discharge Activity
== END 2020-04-10 21:54 | disposition home or self-care (01) ==
LOC: FER 21:27
DX: S59.911A Unspecified injury of right forearm, initial encounter (principal)
CPT/HCPCS: 99283-25

== ENCOUNTER 2020-10-30 07:53 | Emergency (ER) | payer OTHER ==
[2020-10-30 09:03] VITALS: BP 176/100; PULSE 95; TEMP 98.9; BMI 43.2
== END 2020-10-30 09:11 | disposition home or self-care (01) ==
LOC: FER 07:53
DX: F41.0 Panic disorder [episodic paroxysmal anxiety] (principal); R06.02 Shortness of breath
CPT/HCPCS: 71046-TC-FY; 93005; 99285-25; C9803; U0003

== ENCOUNTER 2022-03-03 19:15 | Emergency (ER) | payer OTHER ==
[2022-03-03 20:10] VITALS: BP 128/76; PULSE 94; TEMP 99.2; BMI 44.1
[2022-03-03 21:15] LABS: ALBUMIN 4.4 g/dl (3.4-5.0); BILIRUBIN,TOTAL 1.1 mg/dl (0.2-1); CREATININE 1.3 mg/dl (0.55-1.3); TOT PROT 7.7 g/dl (6.4-8.2)
[2022-03-03 21:17] LABS: HEMATOCRIT 45.8 % (35.4-49); MCH 30.4 pg (25.7-33.7); MCHC 34.9 g/dl (32.0-35.9); MEAN CELL VOLUME 87.1 fl (80-96); MEAN PLT VOLUME 9.6 fl (7.5-11.1); PLATELET COUNT 200.8 10^3/uL (134-434); RBC 5.26 10^6/uL (4.00-5.60); RDW 14.4 % (11.9-15.9); WHITE BLOOD COUNT 8.2 10^3/uL (4.0-10.8)
[2022-03-03] MEDS ORDERED: SODIUM CHLORIDE 1,000 ML IV ONE (21:47)
== END 2022-03-03 23:36 | disposition home or self-care (01) ==
LOC: FER 19:15
DX: R42 Dizziness and giddiness (principal); F41.9 Anxiety disorder, unspecified
CPT/HCPCS: 36415; 80053; 82550; 82553; 82962; 84484; 85025; 93005; 99284-25

== ENCOUNTER 2022-08-11 22:00 | Emergency (ER) | payer OTHER ==
[2022-08-11 22:25] VITALS: BP 154/90; PULSE 98; RESP 20; TEMP 98.5; BMI 42.4
[2022-08-12] MEDS ORDERED: KETOROLAC TROMETHAMINE 60 MG/2 ML VIAL IM ONE (00:04)
[2022-08-12] MEDS ORDERED: KETOROLAC TROMETHAMINE 60 MG/2 ML VIAL ONE (00:06)
== END 2022-08-12 01:11 | disposition home or self-care (01) ==
LOC: FER 22:00
PROC: 3E023GC Introduction of Other Therapeutic Substance into Muscle, Percutaneous Approach (ICD-10-PCS; principal; 2022-08-11)
DX: S29.012A Strain of muscle and tendon of back wall of thorax, initial encounter (principal); X50.0XXA Overexertion from strenuous movement or load, initial encounter
CPT/HCPCS: 99284-25

== ENCOUNTER 2022-11-27 14:04 | Emergency (ER) | payer OTHER ==
[2022-11-27 14:35] VITALS: BP 152/97; PULSE 70; RESP 18; TEMP 98.6; BMI 42.3
[2022-11-27] MEDS ORDERED: LIDOCAINE 5% TOPICAL PATCH TP ONE (14:57)
[2022-11-27] MEDS ORDERED: KETOROLAC TROMETHAMINE 30 MG/1 ML VIAL IM ONE (14:57)
[2022-11-27] MEDS ORDERED: METHOCARBAMOL 500 MG TABLET PO ONE (14:58)
[2022-11-27] MEDS ORDERED: KETOROLAC TROMETHAMINE 30 MG/1 ML VIAL ONE (15:02)
[2022-11-27] MEDS ORDERED: METHOCARBAMOL 500 MG TABLET ONE (15:02)
[2022-11-27] MEDS ORDERED: LIDOCAINE 5% TOPICAL PATCH ONE (15:03)
== END 2022-11-27 16:10 | disposition home or self-care (01) ==
LOC: FER 14:04
PROC: 3E0233Z Introduction of Anti-inflammatory into Muscle, Percutaneous Approach (ICD-10-PCS; principal; 2022-11-27)
DX: S16.1XXA Strain of muscle, fascia and tendon at neck level, initial encounter (principal); R20.2 Paresthesia of skin; F41.9 Anxiety disorder, unspecified; X50.3XXA Overexertion from repetitive movements, initial encounter; Y99.0 Civilian activity done for income or pay
CPT/HCPCS: 93005; 99284-25

== ENCOUNTER 2023-02-09 19:48 | Emergency (ER) | payer OTHER ==
[2023-02-09 20:02] VITALS: PULSE 87; RESP 18; TEMP 98; BMI 41.5
[2023-02-09] MEDS ORDERED: SODIUM CHLORIDE 1,000 ML IV ONE (20:06)
[2023-02-09] MEDS ORDERED: KETOROLAC TROMETHAMINE 30 MG/1 ML VIAL IVPUSH ONE (20:08)
[2023-02-09] MEDS ORDERED: KETOROLAC TROMETHAMINE 30 MG/1 ML VIAL ONE (20:10)
[2023-02-09 20:29] LABS: HEMATOCRIT 46.6 % (35.4-49); HEMOGLOBIN 15.7 G/dL (11.7-16.9); MCH 30.5 pg (25.7-33.7); MCHC 33.7 g/dl (32.0-35.9); MEAN CELL VOLUME 90.4 fl (80-96); MEAN PLT VOLUME 9.7 fl (7.5-11.1); RBC 5.15 10^6/uL (4.00-5.60); RDW 13.8 % (11.9-15.9)
[2023-02-09 20:51] LABS: ALBUMIN 4.7 g/dl (3.4-5.0); BILIRUBIN,TOTAL 0.4 mg/dl (0.2-1); BLOOD UREA NITROGEN 23.1 mg/dl (7-18); CREATININE 1.1 mg/dl (0.6-1.3); POTASSIUM 3.6 mmol/L (3.5-5.1); SGOT/AST 25.7 U/L (15-37); SGPT/ALT 46.8 U/L (7-52); TOT PROT 7.2 g/dl (6.4-8.2)
[2023-02-09 21:09] LABS: CALCIUM OXALATE CRYSTALS FEW /hpf (NONE SEEN)
[2023-02-09] MEDS ORDERED: FAMOTIDINE 20 MG/50 ML IVPB 20 MG/50 ML MG IVPB ONE ×2 (21:21→21:22)
[2023-02-09 22:12] VITALS: BP 137/68
== END 2023-02-09 22:25 | disposition home or self-care (01) ==
LOC: FER 19:48
PROC: 3E033GC Introduction of Other Therapeutic Substance into Peripheral Vein, Percutaneous Approach (ICD-10-PCS; principal; 2023-02-09)
PROC: 3E0333Z Introduction of Anti-inflammatory into Peripheral Vein, Percutaneous Approach (ICD-10-PCS; 2023-02-09)
PROC: 3E0337Z Introduction of Electrolytic and Water Balance Substance into Peripheral Vein, Percutaneous Approach (ICD-10-PCS; 2023-02-09)
DX: R10.11 Right upper quadrant pain (principal); R10.13 Epigastric pain
CPT/HCPCS: 36415; 71045-TC-FY; 76705-TC; 80053; 81003; 81015; 82550; 82553; 83690; 84484; 85027; 93005; 99285-25

== ENCOUNTER 2023-04-18 08:02 | Emergency (ER) | payer OTHER ==
[2023-04-18] MEDS ORDERED: SODIUM CHLORIDE 1,000 ML IV STA (08:29)
[2023-04-18] MEDS ORDERED: ONDANSETRON 4 MG/2 ML VIAL IVPUSH ONE (08:29)
[2023-04-18] MEDS ORDERED: FAMOTIDINE 20 MG/50 ML IVPB 20 MG/50 ML MG IVPB ONE ×2 (08:29→08:35)
[2023-04-18] MEDS ORDERED: ONDANSETRON 4 MG/2 ML VIAL ONE (08:35)
[2023-04-18 09:03] VITALS: BP 115/67; PULSE 74; RESP 20; TEMP 98.2; BMI 41.1
[2023-04-18 09:27] LABS: HEMATOCRIT 41.9 % (35.4-49); HEMOGLOBIN 14.1 G/dL (11.7-16.9); MCH 30.4 pg (25.7-33.7); MCHC 33.7 g/dl (32.0-35.9); MEAN CELL VOLUME 90.1 fl (80-96); MEAN PLT VOLUME 8.3 fl (7.5-11.1); PLATELET COUNT 206.9 10^3/uL (134-434); RBC 4.65 10^6/uL (4.00-5.60); RDW 13.8 % (11.9-15.9)
[2023-04-18 09:49] LABS: ALBUMIN 3.9 g/dl (3.4-5.0); BLOOD UREA NITROGEN 18.6 mg/dl (7-18); CALCIUM 9.1 mg/dl (8.5-10.1); CREATININE 0.8 mg/dl (0.6-1.3); SGOT/AST 27.1 U/L (15-37); SGPT/ALT 40.8 U/L (7-52); TOT PROT 5.7 g/dl (6.4-8.2)
[2023-04-18 10:02] LABS: PLATELET ESTIMATE ADEQUATE
[2023-04-18] MEDS ORDERED: LIDOCAINE 5% TOPICAL PATCH TP ONE (10:09)
[2023-04-18] MEDS ORDERED: LIDOCAINE 5% TOPICAL PATCH ONE (10:15)
[2023-04-18 11:15] LABS: BILIRUBIN,TOTAL 0.2 mg/dL (0.2-1)
[2023-04-18] MEDS ORDERED: AMOX TR/POT CLAV 875MG/125MG TABLETS (FP) PO ONE (13:02)
[2023-04-18] MEDS ORDERED: AMOX TR/POT CLAV 875MG/125MG TABLETS (FP) ONE (13:06)
[2023-04-18] MEDS ORDERED: LIDOCAINE PATCH REMOVAL MC ONE (22:00)
== END 2023-04-18 13:10 | disposition home or self-care (01) ==
LOC: FER 08:02
PROC: 3E033GC Introduction of Other Therapeutic Substance into Peripheral Vein, Percutaneous Approach (ICD-10-PCS; principal; 2023-04-18)
PROC: 3E033GC Introduction of Other Therapeutic Substance into Peripheral Vein, Percutaneous Approach (ICD-10-PCS; 2023-04-18)
DX: R10.13 Epigastric pain (principal); K59.00 Constipation, unspecified; R11.0 Nausea; R10.32 Left lower quadrant pain; K57.32 Diverticulitis of large intestine without perforation or abscess without bleeding
CPT/HCPCS: 36415; 74177-TC; 80053; 81003; 83690; 84484; 85027; 93005; 99285-25; Q9967

== ENCOUNTER 2023-06-02 04:37 | Day surgery (SDC) | payer OTHER ==
[2023-06-01 12:06] VITALS: BMI 40.0
[2023-06-02] MEDS ORDERED: BUPIVACAINE HCL/PF 0.5% (5 MG/ML) 30 ML VIAL IJ ONE (08:54)
[2023-06-02 09:25] VITALS: RESP 18
[2023-06-02 09:59] VITALS: BP 129/78; PULSE 69; TEMP 97.2
[2023-06-02] MEDS ORDERED: ACETAMINOPHEN 500 MG TABLET (FP) PO PRN (15:10)
== END 2023-06-02 10:08 | disposition home or self-care (01) ==
LOC: JASU-SURG 04:37
PROVIDERS: ATTEND Pain Medicine Pain Medicine
PROC: 3E0T33Z Introduction of Anti-inflammatory into Peripheral Nerves and Plexi, Percutaneous Approach (ICD-10-PCS; 2023-06-02)
PROC: 3E0T3BZ Introduction of Anesthetic Agent into Peripheral Nerves and Plexi, Percutaneous Approach (ICD-10-PCS; principal; 2023-06-02 08:45)
DX: M47.812 Spondylosis without myelopathy or radiculopathy, cervical region (principal)
CPT/HCPCS: 76000-TC-FY

== ENCOUNTER 2023-10-02 03:54 | Day surgery (SDC) | payer BC ==
[2023-09-30 12:19] VITALS: BMI 40.0
[2023-10-02] MEDS ORDERED: LIDOCAINE HCL/PF 1% SDV 5ML VIAL ONE (07:26)
[2023-10-02] MEDS ORDERED: BUPIVACAINE HCL/PF 0.75% 10 ML VIAL ONE (07:26)
[2023-10-02 14:02] VITALS: TEMP 97.8
[2023-10-02] MEDS: LIDOCAINE HCL 1% PRESERVATIVE FREE - 30ML VIAL IJ ONE ×2 (15:26)
[2023-10-02] MEDS: BUPIVACAINE HCL/PF 0.75% 10 ML VIAL NR ONE ×2 (15:29)
[2023-10-02] MEDS ORDERED: ACETAMINOPHEN 500 MG TABLET (FP) PO PRN (15:34)
[2023-10-02 17:41] VITALS: BP 135/71; PULSE 82; RESP 18
== END 2023-10-02 15:45 | disposition home or self-care (01) ==
LOC: JASU-SURG 03:54
PROVIDERS: ATTEND Pain Medicine Pain Medicine
PROC: 3E0T33Z Introduction of Anti-inflammatory into Peripheral Nerves and Plexi, Percutaneous Approach (ICD-10-PCS; 2023-10-02)
PROC: 3E0T3BZ Introduction of Anesthetic Agent into Peripheral Nerves and Plexi, Percutaneous Approach (ICD-10-PCS; principal; 2023-10-02 15:45)
DX: M47.816 Spondylosis without myelopathy or radiculopathy, lumbar region (principal)
CPT/HCPCS: 76000-TC-FY

== ENCOUNTER 2023-10-30 04:19 | Day surgery (SDC) | payer BC ==
[2023-10-29 13:14] VITALS: BMI 39.8
[2023-10-30] MEDS: LIDOCAINE 1% P/F 10 MG/ML VIAL INF ONE
[2023-10-30] MEDS ORDERED: BUPIVACAINE HCL/PF 0.5% (5MG/ML) 10 ML VIAL ONE (07:15)
[2023-10-30] MEDS ORDERED: LIDOCAINE HCL/PF 1% SDV 5ML VIAL ONE (07:16)
[2023-10-30] MEDS: BUPIVACAINE HCL/PF 0.5% (5MG/ML) 10 ML VIAL IJ ONE ×2 (08:51)
[2023-10-30 09:21] VITALS: BP 127/79; PULSE 73; RESP 18; TEMP 98.7
== END 2023-10-30 09:40 | disposition home or self-care (01) ==
LOC: JASU-SURG 04:19
PROVIDERS: ATTEND Pain Medicine Pain Medicine
PROC: 3E0T33Z Introduction of Anti-inflammatory into Peripheral Nerves and Plexi, Percutaneous Approach (ICD-10-PCS; 2023-10-30)
PROC: 3E0T3BZ Introduction of Anesthetic Agent into Peripheral Nerves and Plexi, Percutaneous Approach (ICD-10-PCS; principal; 2023-10-30 08:45)
DX: M47.812 Spondylosis without myelopathy or radiculopathy, cervical region (principal)
CPT/HCPCS: 76000-TC-FY

== ENCOUNTER 2024-01-13 21:57 | Emergency (ER) | payer BC ==
[2024-01-13 22:09] VITALS: PULSE 74; RESP 16; TEMP 98.5; BMI 42.5
[2024-01-13 22:53] LABS: HEMATOCRIT 45.7 % (35.4-49); HEMOGLOBIN 15.5 G/dL (11.7-16.9); MCH 30.3 pg (25.7-33.7); MCHC 33.8 g/dl (32.0-35.9); MEAN CELL VOLUME 89.5 fl (80-96); MEAN PLT VOLUME 8.9 fl (7.5-11.1); PLATELET COUNT 178.6 10^3/uL (134-434); RBC 5.11 10^6/uL (4.00-5.60); RDW 14.3 % (11.9-15.9); WHITE BLOOD COUNT 6.4 10^3/uL (4.0-10.8)
[2024-01-13 23:15] LABS: ALBUMIN 2.4 g/dl (3.4-5.0); BILIRUBIN,TOTAL 0.3 mg/dl (0.2-1); CALCIUM 8.4 mg/dl (8.5-10.1); CREATININE 0.9 mg/dl (0.6-1.3); POTASSIUM 3.7 mmol/L (3.5-5.1); TOT PROT 4.5 g/dl (6.4-8.2)
[2024-01-13 23:32] VITALS: BP 117/76
== END 2024-01-13 23:32 | disposition home or self-care (01) ==
LOC: FER 21:57
DX: I10 Essential (primary) hypertension (principal); F41.9 Anxiety disorder, unspecified
CPT/HCPCS: 36415; 80053; 84484; 85027; 93005; 99284-25

== ENCOUNTER 2024-02-15 19:01 | Emergency (ER) | payer BC ==
[2024-02-15 19:34] VITALS: BP 132/85; PULSE 105; RESP 16; TEMP 99.2; BMI 60.9
== END 2024-02-15 21:00 | disposition home or self-care (01) ==
LOC: FER 19:01
DX: M25.562 Pain in left knee (principal); M25.462 Effusion, left knee
CPT/HCPCS: 93971-TC; 99284-25